=== PATIENT | male | born 1955 | race Caucasian/White ===

== ENCOUNTER → 2022-08-26 10:29 | Outpatient (CLI) | payer MEDICARE, SELFPAY ==
[2022-08-26 14:14] LABS: Blood Urea Nitrogen 18 mg/dl (9-20); Estimated Glomerular Filt Rate 74 ml/min (>60); GFR (African American) 90 ML/MIN (>60)
== END ==
PROVIDERS: PCP Internal Medicine Adolescent Medicine; Visit Provider Surgery
DX: K40.90 Unilateral inguinal hernia, without obstruction or gangrene, not specified as recurrent (principal)
CPT/HCPCS: 36415; 82565; 84520

== ENCOUNTER → 2022-08-28 09:48 | Outpatient (CLI) | payer MEDICARE, BC, SELFPAY ==
--- NOTE | 2022-08-28 09:49 | US_ITS ---
FINAL REPORT CLINICAL HISTORY: . COMPARISON: CT pelvis from earlier today FINDINGS: Ultrasound images of the testicles were obtained bilaterally. Color Doppler images were obtained. The right testicle measures 5.3 cm in length. The left testicle measures 4.4 cm in length. Arterial flow is identified bilaterally. No intratesticular masses are identified. There is a 4 cm cyst within the right testicle. There is a 1.3 cm, presumed, right epididymal cyst. There is a small right varicocele. There is a large left varicocele measuring up to 10 cm. IMPRESSION: No evidence of testicular torsion or mass. Large left varicocele with a small right varicocele. Presumed right epididymal cyst. Right testicular cyst. Reviewed, Interpreted and Dictated by Felipe Ferrari III, MD Transcribed by Elise Olmedo Authenticated and [facility]
--- NOTE | 2022-08-28 09:49 | CT_ITS ---
FINAL REPORT CLINICAL HISTORY: hernia vs hydocele. pain and swelling pt had Ultrasound today. FINDINGS: CT ABDOMEN AND PELVIS WITH CONTRAST TECHNIQUE: Axial images through the pelvis were performed. IV and oral contrast was administered. This study was performed with techniques to keep radiation doses as low as reasonably achievable (ALARA). Individualized dose reduction techniques using automated exposure control or adjustment of mA and/or kV according to the patient's size were employed. The appendix is not identified. The urinary bladder is unremarkable. There is a large left hydrocele measuring up to 10.8 cm. There is a small right hydrocele. No hernia is identified. There are mild vascular calcifications. 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 IMPRESSION: Large left hydrocele and a small right hydrocele. Reviewed, Interpreted and Dictated by Felipe Ferrari III, MD Transcribed by Lary Tidwell Authenticated and [facility]
== END ==
PROVIDERS: PCP Internal Medicine Adolescent Medicine; Visit Provider Surgery
DX: K40.90 Unilateral inguinal hernia, without obstruction or gangrene, not specified as recurrent (principal)
CPT/HCPCS: 72193; 76870; Q9967

== ENCOUNTER → 2022-12-20 15:10 | Outpatient (CLI) | payer MEDICARE, BC, SELFPAY ==
[2022-12-20 17:27] LABS: Basophils # 0.1 K/mm3 (0-0.2); Basophils % 1.4 % (0.1-2.0); Eosinophils # 0.2 K/mm3 (0.0-0.4); Eosinophils % 3.9 % (0.1-12.0); Hematocrit 47.1 % (42.0-52.0); Hemoglobin 15.6 g/dL (14.1-18.0); Lymphocytes # 1.2 K/mm3 (0.7-4.5); Lymphocytes % 23.7 % (10-50); Mean Corpuscular Hemoglobin 29.6 pg (27.0-31.2); Mean Corpuscular Volume 89.5 fl (80-94); Mean Platelet Volume 8.2 fl (7.4-10.4); Monocytes # 0.4 K/mm3 (0.1-1.0); Monocytes % 7.8 % (1.7-9.3); Neutrophils # 3.1 K/mm3 (1.8-7.8); Neutrophils % 63.2 % (37.0-80.0); Platelet Count 218 K/mm3 (142-424); Red Blood Count 5.26 M/mm3 (4.60-6.20); Red Cell Distribution Width 13.5 % (11.5-17.5); White Blood Count 4.9 K/mm3 (4.8-10.8)
[2022-12-20 18:13] LABS: Alanine Aminotransferase 16 U/L (12-78); Albumin Level 4.1 g/dl (3.5-5.0); Alkaline Phosphatase 107 U/L (38-126); Amylase 41 U/L (30-110); Anion Gap 7.9 mEq/L (5-15); Aspartate Amino Transferase 28 U/L (17-59); Bilirubin,Total 0.7 mg/dl (0.2-1.3); Blood Urea Nitrogen 16 mg/dl (9-20); Calcium 8.9 mg/dl (8.4-10.2); Carbon Dioxide 33 mmol/L (22.0-30.0); Chloride 103 mmol/L (98-107); Chol/HDL Ratio 3.2 (1-3.5); Cholesterol 142 mg/dl (140-200); Estimated Glomerular Filt Rate 67 ml/min (>60); GFR (African American) 81 ML/MIN (>60); Globulin 2.1 g/dL (1.3-3.2); Glucose 92 mg/dl (74-100); HDL Cholesterol 44 mg/dl (40-60); Lipase 53 U/L (23-300); Potassium 3.9 mmoL/L (3.5-5.1); Sodium 140 mmol/L (136-145); Total Protein,Serum 6.2 g/dl (6.3-8.2); Triglycerides 165 mg/dl (30-150); VLDL Cholesterol 33 mg/dL (0-40)
[2022-12-20 18:24] LABS: Direct LDL Cholesterol 82.43 mg/dL (100-129)
== END ==
PROVIDERS: PCP Internal Medicine Adolescent Medicine; Visit Provider Internal Medicine Adolescent Medicine
DX: R10.13 Epigastric pain (principal); Z87.19 Personal history of other diseases of the digestive system; N43.3 Hydrocele, unspecified; E78.1 Pure hyperglyceridemia
CPT/HCPCS: 36415; 80053; 80061; 82150; 83690; 85025

== ENCOUNTER 2025-07-24 14:55 | Outpatient (CLI) | payer MEDICARE, BC, SELFPAY ==
--- NOTE | 2025-07-24 15:29 | ECG_ITS ---
APPROVED REPORT Exam: Resting ECG HR:45 bpm ECG Measurements Heart Rate 45 AXES NE 185 P 64 QRSd 93 QRS 66 QT 456 T 63 QTc 412 Conclusion SINUS BRADYCARDIA WITH SINUS ARRHYTHMIA LOW QRS VOLTAGE IN PRECORDIAL LEADS [QRS DEFLECTION < 1.0 mV IN CHEST LEADS] BORDERLINE ECG UNCONFIRMED REPORT Electronically signed by : Salvador Lopez MD 07/26/2025 20:23:45
== END 2025-07-24 23:59 | disposition home or self-care (01) ==
LOC: RT 14:56
PROVIDERS: PCP Internal Medicine Adolescent Medicine; Visit Provider Internal Medicine Adolescent Medicine
DX: I47.10 Supraventricular tachycardia, unspecified (principal); I49.1 Atrial premature depolarization; I49.3 Ventricular premature depolarization; I49.8 Other specified cardiac arrhythmias; R00.1 Bradycardia, unspecified; R94.31 Abnormal electrocardiogram [ECG] [EKG]
CPT/HCPCS: 93005; 93270